=== PATIENT | male | born 1975 | race Caucasian/White ===

== ENCOUNTER 2018-10-26 03:03 | Emergency (ER) | payer MEDICAID ==
[~2018-10-26] VITALS: Ht 172.7 cm; Wt 98.2 kg
[2018-10-26 03:08] VITALS: Ht 172.7 cm; Wt 98.2 kg
[2018-10-26 05:19] VITALS: BP 135/83
== END 2018-10-26 05:19 | disposition home or self-care (01) ==
LOC: ED 03:03
DX: T45.0X5A Adverse effect of antiallergic and antiemetic drugs, initial encounter (principal); Y92.89 Other specified places as the place of occurrence of the external cause
CPT/HCPCS: J1200; J2930; J3490